=== PATIENT | male | born 1980 | race Caucasian/White ===

== ENCOUNTER 2016-06-28 04:50 | Day surgery (SDC) | payer BC ==
[2016-06-24 21:38] LABS: BUN (BLOOD UREA NITROGEN) 13 MG/DL (6-23); CALCIUM, SERUM 9.1 MG/DL (8.5-10.4); CHLORIDE, SERUM 109 MMOL/L (96-112); CO2 (CARBON DIOXIDE) 32 MMOL/L (24-34); CREATININE 0.93 MG/DL (0.70-1.30); GFR AFRICAN AMERICAN 122 ML/MIN (>=60); GFR NON AFRICAN AMERICAN 105 ML/MIN (>=60); SODIUM, SERUM 145 MMOL/L (135-148)
[2016-06-24 21:40] LABS: GLUCOSE, SERUM 110 MG/DL (60-99)
--- NOTE | ~2016-06-28 | OP ---
Record Of Operation [facility] [address] [place]. [address] NAME: NITESH CHANDRA : 80 STATUS : [facility]#: [id number] AGE: 36 ADM/REG DATE : 06/28/16 MR#: [id number] REPORT SERV DATE: 06/30/16 DICTATED BY: DENNISE ADAM II DATE: 06/30/16 REPORT STATUS : Draft TRANSCRIBED BY: MODL DATE: 06/30/16 DATE OF PROCEDURE: 06/28/2016 PREOPERATIVE DIAGNOSES: 1. L4-5 disk herniation. 2. L4-5 stenosis. 3. 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 POSTOPERATIVE DIAGNOSES: 1. L4-5 disk herniation. 2. L4-5 stenosis. 3. 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 PROCEDURES: 1. L4-5 laminectomy secondary to stenosis and facet changes. 2. L4-5 microdiskectomy secondary to disk extrusion. 3. Use of the microscope and stereotactic spinal imaging. FLUID: 1300 mL of LR. ESTIMATED BLOOD LOSS: 30 mL. DRAINS: None. COMPLICATIONS: None. ANTIBIOTIC: Preoperatively. PREOPERATIVE HISTORY: This is a very friendly 36-year-old gentleman with a significant degenerative changes at L4-5. He is having some back pain, but overall his primary complaint is pains radiating in the buttocks and legs consistent with stenosis as well as the disk herniation. We discussed the pros and cons of surgery. After discussing with him in preoperative holding, his complaints were significant in the calves and also bilateral feet numbness and tingling. I felt that we needed to not only do a microdiskectomy but also address the significant stenosis from the facet changes. Overall, I felt two separate but identifiable procedures were indicated. DESCRIPTION OF PROCEDURE: After informed consent was obtained, Mr. Chandra was brought to the operating room at his request and general anesthesia achieved. He was placed in prone position and the back was prepped and draped in a sterile fashion. The stereotactic spinal pin was placed into the right iliac crest and the intraoperative CT scan completed. Stereotactic guidance was then used throughout the case. The minimally invasive incision was performed on the left at L4-5 and the minimally invasive quadrant retractor was placed secondary to the need for a more formal laminectomy. This was chosen over the tubular retractor. Record Of Operation [facility] [address] [place]. [address] NAME: NITESH CHANDRA : 80 STATUS : [facility]#: [id number] AGE: 36 ADM/REG DATE : 06/28/16 MR#: [id number] REPORT SERV DATE: 06/30/16 DICTATED BY: DNENISE ADAM II DATE: 06/30/16 REPORT STATUS : Draft TRANSCRIBED BY: MODL DATE: 06/30/16 At this point, the microscope was brought into place and under microscopic visualization, the laminectomy was initiated with the high-speed bur and the Kerrison rongeurs. The central canal was now well decompressed with removal of the significantly hypertrophic ligamentum flavum. The dura was then well decompressed. There was significant central and lateral recess stenosis from the significant facet changes and the hypertrophic ligamentum flavum. At this point, the canal was decompressed and the contralateral decompression was also achieved through the unilateral approach by turning the table and the retractor. At this point, I was pleased with the central decompression as well as the lateral recess decompression. The L5 nerve root was then retracted and the disk fragment removed. We also used the knife to enter the disk space and several other fragments removed. There was also a subligamentous fragment which was crossing over to the right side which was also removed. Following irrigation, hemostasis was confirmed and standard closure performed. The patient was extubated and transferred to PACU in stable condition. I discussed with his family who were not present in the preoperative holding area that Nitesh and I have discussed the possible need for fusion down the road if needed. I answered all their questions appropriately. NAZIA/DUYEN Dennise Adam II, M.D. / [id number] CC: Wilmer Veras II, D.O.
[~2016-06-28 04:50] MED LIST: GABAPENTIN PO; ULTRAM50 PO
== END 2016-06-28 12:26 | disposition home or self-care (01) ==
LOC: SDC 04:50
PROVIDERS: Orthopaedic Surgery
PROC: 01NB0ZZ Release Lumbar Nerve, Open Approach (ICD-10-PCS; 2016-06-28)
PROC: 0SB20ZZ Excision of Lumbar Vertebral Disc, Open Approach (ICD-10-PCS; principal; 2016-06-28 05:45)
DX: M51.16 Intervertebral disc disorders with radiculopathy, lumbar region (principal); M48.06 Spinal stenosis, lumbar region; M47.26 Other spondylosis with radiculopathy, lumbar region; E03.9 Hypothyroidism, unspecified; E16.2 Hypoglycemia, unspecified; G47.33 Obstructive sleep apnea (adult) (pediatric); F17.290 Nicotine dependence, other tobacco product, uncomplicated; Z99.89 Dependence on other enabling machines and devices; Z87.81 Personal history of (healed) traumatic fracture; Z79.899 Other long term (current) drug therapy; Z98.890 Other specified postprocedural states
CPT/HCPCS: 36415; 80048; 88304; 88311; 93005; A9270-GY; J0690; J1030; J1170; J1885; J2250; J2405; J2710; J3010